=== PATIENT | female | born 1960 | race Two or more races ===

== ENCOUNTER → 2023-08-04 | Day surgery (SDC) | payer MEDICAID ==
[2023-06-23 11:13] LABS: Basophils # (auto) 0 10 ^3/uL (0-0.2); Basophils % (auto) 0.4 % (0.0-2.0); Eosinophils # (auto) 0.1 10 ^3/uL (0-0.8); Eosinophils % (auto) 1.6 % (0.0-7.0); Hematocrit 45.4 % (36.0-46.0); Hemoglobin 14.8 g/dL (12.2-16.2); Lymphocytes % (auto) 24.2 % (10.0-50.0); Mean Corpuscular Hemoglobin 29.3 pg (28.0-32.0); Mean Corpuscular Hgb Conc. 32.6 g/dL (32.0-36.0); Mean Corpuscular Volume 89.9 fL (80.0-100.0); Monocytes # (auto) 0.7 10 ^3/uL (0-1.3); Monocytes % (auto) 8.3 % (0.0-12.0); Neutrophils # (auto) 5.5 10 ^3/uL (1.6-8.6); Neutrophils % (auto) 65.5 % (37.0-80.0); Nucleated Red Blood Cells % 0.1 %; Red Blood Cells 5.05 10^6/uL (4.0-5.20); Red Cell Distribution Width 14.1 % (11.8-14.3); White Blood Cell 8.4 10^3/uL (4.4-10.8)
[2023-06-23 11:16] LABS: Urine Bacteria FEW /hpf (None Seen); Urine Blood 1+ /uL (Negative); Urine Clarity Clear (Clear); Urine Color Light-Yellow (Yellow); Urine Mucus FEW (None Seen); Urine Protein, UAD Negative (Negative); Urine Specific Gravity 1.015 (1.001-1.035); Urine Urobilinogen Normal (Negative); Urine WBC 13 /hpf (0 - 5)
[2023-06-23 11:27] LABS: INR 1.01 (0.9-1.15); Partial Thromboplastin Time 28.1 SEC (24.5-34.5); Prothrombin Time 10.7 sec (9.3-11.8)
[2023-06-23 11:59] LABS: Alanine Aminotransferase 20 U/L (7-40); Alkaline Phosphatase 79 U/L (46-116); Anion Gap 3 (5-15); BUN/Creatinine Ratio 9.6 (10.0-20.0); Blood Urea Nitrogen 8 mg/dL (9-23); Calcium 9.7 mg/dL (8.5-10.1); Carbon Dioxide 31 mmol/L (20-30); Chloride 108 mmol/L (98-107); Glucose 111 mg/dL (74-106); Potassium 4.2 mmol/L (3.5-5.1); Sodium 142 mmol/L (136-145)
[2023-06-23 12:00] LABS: Albumin 4.4 g/dL (3.2-4.8); Aspartate Aminotransferase 11 U/L (13-40); Bilirubin, Total 0.5 mg/dL (0.2-1.0); Total Protein 6.8 g/dL (5.7-8.2)
[~2023-08-04] VITALS: Ht 152.4 cm; Wt 90.7 kg
[~2023-08-04] MED LIST: LIDOCAINE 1% INJ PF 5ML AMP ONE; LIDOCAINE 2%HCL (LOCAL ANESTH.) INJ 10ml MDV ONE; PANT40TA2 PO; PROPOFOL 10 MG/ML 20 ML IV ONE
[2023-08-04 08:35] VITALS: TEMP 97.4; O2SAT 98
[2023-08-04 09:05] VITALS: BP 120/70; PULSE 55; RESP 16; O2SAT 95
== END | disposition home or self-care (01) ==
LOC: GI 06:38
PROVIDERS: ATTEND Internal Medicine Gastroenterology
DX: Z12.11 Encounter for screening for malignant neoplasm of colon (principal); D12.4 Benign neoplasm of descending colon; K57.30 Diverticulosis of large intestine without perforation or abscess without bleeding; K64.8 Other hemorrhoids; F17.210 Nicotine dependence, cigarettes, uncomplicated; E66.09 Other obesity due to excess calories; Z68.39 Body mass index [BMI] 39.0-39.9, adult; Z79.899 Other long term (current) drug therapy; Z98.51 Tubal ligation status
CPT/HCPCS: 36415; 45380; 80053; 81001; 85025; 85610; 85730; 88305; J2001; J2704; J7030